=== PATIENT | male | born 1950 | race Caucasian/White ===

== ENCOUNTER 2019-03-15 08:50 | Emergency (ER) | payer OTHER ==
[~2019-03-15] VITALS: Ht 170.2 cm; Wt 59.0 kg
--- NOTE | 2019-03-15 08:50 | NUR ---
PT BIBA TO ER BED 04
[2019-03-15 08:55] VITALS: BP 125/85
--- NOTE | 2019-03-15 09:01 | NUR ---
PT UNABLE TO GIVE URINE SAMPLE
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
--- NOTE | 2019-03-15 09:13 | NUR ---
DR. AMBRIZ EXAMINING PATIENT AT BEDSIDE.
[2019-03-15] MEDS ORDERED: NACL 0.9% 1,000 ML IV ONE (09:15)
[2019-03-15] MEDS ORDERED: ONDANSETRON 4 MG/2 ML VIAL IVP ONE (09:15)
--- NOTE | 2019-03-15 09:41 | NUR ---
NACL 1000ML AT 100ML/HR BEGUN. PT ON 2 L 02 NC. PT STATED HE IS VERY COLD, GAVE PT WARM BLANKETS.
--- NOTE | 2019-03-15 10:00 | NUR ---
PT STATES UNABLE TO GIVE URINE SAMPLE
--- NOTE | 2019-03-15 10:03 | NUR ---
LAB AT BEDSIDE DRAWING ORDERED LAB WORK.
--- NOTE | 2019-03-15 10:03 | NUR ---
BEVERLY PERFORMED, RESULTS GIVEN TO DR. AMBRIZ
--- NOTE | 2019-03-15 10:14 | NUR ---
PT AT BEDSIDE. PT TALKING WITH WITHOUT DIFFICULTY.
[2019-03-15 10:24] LABS: BASOPHILS # (AUTO) 0.1 K/uL (0.00-0.22); EOSINOPHILS % (AUTO) 0.5 % (0.0-4.0); HEMATOCRIT 38.9 % (36-52); HEMOGLOBIN 12.9 g/dL (12.0-18.0); LYMPHOCYTES # (AUTO) 0.6 K/uL (2.0-11.5); LYMPHOCYTES % (AUTO) 9.7 % (20.5-51.1); MEAN CORPUSCULAR HEMOGLOBIN 38 pg (27-31); MEAN CORPUSCULAR HGB CONC 33 g/dL (33-37); MONOCYTES # (AUTO) 0.6 K/uL (0.8-1.0); MONOCYTES % (AUTO) 10.2 % (1.7-9.3); NEUTROPHILS # (AUTO) 4.6 K/uL (1.8-7.7); NEUTROPHILS % (AUTO) 78.6 % (42.2-75.2); PLATELET COUNT (AUTO) 112 K/uL (140-450); RED BLOOD CELL COUNT(AUTO) 3.42 MIL/uL (4.20-6.10); RED CELL DISTRIBUTION WIDTH 15.7 % (11.6-13.7); WHITE BLOOD COUNT (AUTO) 5.8 K/uL (4.8-10.8)
[2019-03-15 10:39] LABS: PROTHROMBIN TIME 9.5 secs (10.8-13.4)
[2019-03-15 10:42] LABS: ALBUMIN 3.4 g/dL (3.4-5.0); ANION GAP 19.6 (8-16); CARBON DIOXIDE 20.6 mmol/L (21-32); POTASSIUM 4.2 mmol/L (3.5-5.1); TOTAL BILIRUBIN 0.5 mg/dL (0.0-1.0)
--- NOTE | 2019-03-15 10:45 | NUR ---
PT TO CT SCAN BY KATIE, PORTABLE TELEMETRY IN PLACE, ACCOMPANIED BY 2 RT
--- NOTE | 2019-03-15 11:02 | NUR ---
PT RETURNED FROM CT,NO DIFFICULTIES, ASSISTED WITH 2 RT
--- NOTE | 2019-03-15 11:27 | NUR ---
PT IV CHECKED, CLEAN, DRY, NO REDNESS/SWELLING. NACL RUNNING AT 100ML HR. PT TALKING WITH AT BEDSIDE. RESTING COMFORTABLY.
[2019-03-15] MEDS ORDERED: ACETAMINOPHEN 325 MG TAB PO PRN (11:45)
[2019-03-15] MEDS ORDERED: HYDROcodone/APAP 7.5/325 MG 1 TAB PO PRN (11:45)
[2019-03-15] MEDS ORDERED: ONDANSETRON 4 MG/2 ML VIAL IVP PRN (11:45)
--- NOTE | 2019-03-15 11:50 | NUR ---
PT NACL RUNNING AT 100 ML/HR. PT RESTING, EYES CLOSED. VS STABLE. [address] AT 2L[address]
[2019-03-15 12:15] LABS: CHOL/HDL RATIO 1.8 (1-4.5); FREE T4 (FREE THYROXINE) 0.99 ng/dL (0.76-1.46); PHOSPHORUS 3.6 mg/dL (2.5-4.9); THYROID STIMULATING HORMONE 4.57 uIU/mL (0.34-3.74)
[2019-03-15 12:25] VITALS: BP 136/76
--- NOTE | 2019-03-15 12:26 | NUR ---
PT REFUSTED TO BE ADMITTED ORDERED BY DR. AMBRIZ. PT SIGNED AMA PAPERS. NACL DISCONTINUED, IV REMOVED. PT GETTING DRESSED, STABLE. CALLED FOR TRANSPORTATION FOR PATIENT.
[2019-03-15] MEDS ORDERED: DOCUSATE SODIUM 100 MG GELCAP PO SCH (21:00)
== END 2019-03-15 12:26 | disposition left against medical advice (07) ==
LOC: MED 08:50
DX: R55 Syncope and collapse (principal); R79.89 Other specified abnormal findings of blood chemistry; F17.200 Nicotine dependence, unspecified, uncomplicated; J44.9 Chronic obstructive pulmonary disease, unspecified; Z85.118 Personal history of other malignant neoplasm of bronchus and lung
CPT/HCPCS: 36415; 70450; 71250; 80053; 82150; 82550; 83036; 83690; 83735; 83880; 84100; 84439; 84443; 84484; 85025; 85610; 85730; 86886; 86900; 86901; 96360; 96361; 99284; J2405; J7030